=== PATIENT | male | born 1965 | race Caucasian/White ===

== ENCOUNTER 2021-01-10 07:13 | Day surgery (SDC) | payer MEDICARE, OTHER ==
[~2021-01-10] VITALS: Ht 170.2 cm; Wt 100.5 kg
[~2021-01-10 07:13] MED LIST: 24 HOUR ALLERG9.9 ML; ABILIFY5 MG PO; ALEVE220 M1 PO; BISMATROL262 MG/15 PO; CENTRUM CHEWAB1 EACH PO; FERROUS SULFAT325 M2 PO; FLUTICASONE PRO16 GM NAS; HYDROCHLOROTH12.5 MG PO; METOPROLOL SUC100 MG PO; OSTEO BI-FLEX1 EAC2 PO; PROAIR HFA8.5 GM INH; PROAIR HFA8.5 GM PO; SERTRALINE HCL50 MG PO; VENTOLIN HFA18 GM INH; VENTOLIN HFA18 GM PO; VITAMIN C250 MG PO; VITAMIN C500 M1 PO; ZOLOFT50 MG PO
--- NOTE | 2021-01-10 08:00 | NUR ---
covid swab collected sent to in-house lab
--- NOTE | 2021-01-10 10:47 | NUR ---
01/10/21 Alyson7 Alyssa Bellamy 1040 PT TO PACU ALERT AND AWAKE DENIES PAIN, ASKING FOR JUICE, TOLERATES PO FLUIDS WELL
--- NOTE | 2021-01-11 06:50 | OR ---
[facility] [address], [place] [address] Signed DATE OF OPERATION: 01/10/2021 SURGEON: Aster Duron MD PREOPERATIVE DIAGNOSES: 1. Iron-deficiency anemia. 2. History of hemorrhoids. 3. History of hemorrhoidectomy in 2006. 4. Perianal human papillomavirus, flat lesions. 5. Pruritus ani. POSTOPERATIVE DIAGNOSES: 1. Mild to moderate punctate hemorrhagic gastritis. 2. 3 mm rectal polyps x3 at 8 cm. 3. Left prostate lesion. 4. Sacral skin breakdown. PROCEDURES: 1. Esophagogastroduodenoscopy with CLOtest. 2. Colonoscopy with hot biopsy. ESTIMATED BLOOD LOSS: None. INDICATIONS: Shannan is a 55-year-old disabled gentleman asked to see me for upper and lower endoscopy. He was found to be anemic with a hemoglobin of 12.1 and a mean cell volume of 78. He does not recall any hematemesis or hematochezia. There is no family history of colon cancer or polyps. He had a colonoscopy with myself in 2006 for rectal bleeding. He is known to have hemorrhoids. He actually did well with Versed and fentanyl at that time. He had to be excised internal external hemorrhoid at the 5 o'clock position that same year. We did a colonoscopy from again in 2018, apparently that was unremarkable. Unfortunately, I could not find that specific report. He is known to have flat lesions around his anus containing the human papillomavirus. We gently biopsied that every year or so in the office with our punch biopsies. He also has a history of pruritus ani and does very well with Calmoseptine cream. As always, he comes with his caregiver. In the office, I had reviewed all this with Kwame. I gave him pamphlets on both upper and lower endoscopy and we reviewed those together. He understands the nature of the two tests. There is risk including, but not limited to gas bloating, crampy abdominal pain, bleeding, perforation requiring surgery, and missed diagnosis. He also recalls the need Electronically Signed By: ASTER DURON MD 01/11/21 0650 PATIENT NAME: SHANNAN CARRASCO OPERATIVE REPORT DATE OF : 67 REPORT #: [id number] PHYSICIAN: ASTER DURON MD PCP: AMY MENENDEZ NP REPORT IS CONFIDENTIAL AND NOT TO BE RELEASED WITHOUT AUTHORIZATION [facility] [address] [place] [id number] Signed for IV conscious sedation. He always asked me if he is going to be asleep during the procedures. He had expressed understanding and wished to proceed. PROCEDURE IN DETAIL: Shannan was taken into our endoscopy suite, but he is in the supine semi-recumbent position. The posterior oropharynx was anesthetized with lidocaine spray. He has a full face lopez and we had utilized a bite block. He was given Versed and fentanyl IV to cover the case. A total of 7 mg of Versed and 125 mcg of fentanyl were given for both. Unfortunately, he was awake, moving and gagging constantly on the saliva even with suction throughout the upper endoscopy. His O2 sats were dropping and he was holding his breath intermittently. It was quite difficult. We did make our way down to the pyloric bulb, which appeared to be unremarkable. We can see that he does have mild to moderate diffuse punctate hemorrhagic gastritis in the stomach. I suspect that is the source of his anemia. No ulcerations that we could see. He was moving around enough and had a hard time seeing it whether or not he had a hiatal hernia. Although right on the Z-line, he does have a little papilloma of granulation tissue. Unfortunately, he was moving around far too much for me to remove that today. That would require a hot biopsy forceps. However, the Z-line is generally intact. No Zarate's mucosa, no distal esophagitis. His middle and upper esophagus were unremarkable. After that the gas been suctioned out and the gastroscope removed. It took a few minutes to allow him to wake up a bit. We suctioned out the back of his throat. We then moved him into the left lateral decubitus position. He did much better in that position. He did gag on some saliva during his colonoscopy. Kwame was maintained on IV sedation with the Versed and fentanyl for his colonoscopy. A digital rectal exam was performed and not very much really in the way of the hemorrhoidal tissue. He had good sphincter tone. His prostate is becoming indurated and enlarged. On the left, he has somewhat linear area just to the left side of the sulcus on the prostate. He might review that with the primary care provider. The adult colonoscope was then introduced and advanced around into the cecum under direct visualization of camera. Overall, his prep was good. He had a few areas of mucousy liquid stool that was suctioned out. We could easily see the appendiceal orifice and the ileocecal valve. The scope was then withdrawn. We took pictures throughout for photodocumentation. His colon was unremarkable. We found very tiny 3 mm polyps at around 8 cm in the rectum. Several were biopsied for pathologic review. The others were simply cauterized. Upon retroflexion of scope, he had very minimal amount of internal hemorrhoid tissue. After this, the gas was suctioned out and colonoscope removed. Shannan tolerated the procedure generally well. RECOMMENDATIONS: I will see Shannan in my office in 7 to 14 days to review his results. He does have some skin breakdown over the sacrum. He needs punch biopsies around the anus for his history Electronically Signed By: ASTER DURON MD 01/11/21 0650 PATIENT NAME: SHANNAN CARRASCO OPERATIVE REPORT DATE OF : 67 REPORT #: [id number] PHYSICIAN: ASTER DURON MD PCP: AMY MENENDEZ NP REPORT IS CONFIDENTIAL AND NOT TO BE RELEASED WITHOUT AUTHORIZATION [facility] [address], [place] [address] Signed of HPV and we could probably biopsy one of those areas as well. He probably should consider monitored anesthesia care for upper endoscopy in the future given the amount of gagging saliva that he produces. Certainly be much safer and more productive. He also might consider starting an H2 norma or proton-pump inhibitor per his primary care provider. Aster Duron MD ALB/MODL /[id number] cc: MD Justin Naylor, MD Amy Menendez, [employer] Copies: ASTER DURON MD, ROBERT C MD ~ Electronically Signed By: ASTER DURON MD 01/11/21 0650 PATIENT NAME: SHANNAN CARRASCO OPERATIVE REPORT DATE OF : 67 REPORT #: [id number] PHYSICIAN: ASTER DURON MD PCP: AMY MENENDEZ NP REPORT IS CONFIDENTIAL AND NOT TO BE RELEASED WITHOUT AUTHORIZATION
== END 2021-01-10 11:15 | disposition home or self-care (01) ==
LOC: OPS 07:13 → DS 07:13 → OPS 09:45 → DS 09:45 → OPS 11:15
PROVIDERS: ATTEND Colon & Rectal Surgery
PROC: 0DJ08ZZ Inspection of Upper Intestinal Tract, Via Natural or Artificial Opening Endoscopic (ICD-10-PCS; principal; 2021-01-10 09:45)
PROC: 0DBP8ZZ Excision of Rectum, Via Natural or Artificial Opening Endoscopic (ICD-10-PCS; 2021-01-10 09:45)
DX: K29.71 Gastritis, unspecified, with bleeding (principal); K62.1 Rectal polyp; D50.9 Iron deficiency anemia, unspecified; N42.89 Other specified disorders of prostate; I10 Essential (primary) hypertension; M53.3 Sacrococcygeal disorders, not elsewhere classified; Z87.19 Personal history of other diseases of the digestive system; Z88.5 Allergy status to narcotic agent; Z91.048 Other nonmedicinal substance allergy status; Z20.822 Contact with and (suspected) exposure to COVID-19
CPT/HCPCS: 83009; 88305; 99153; C9803; G0500; J2250; J3010; J7121; U0003